=== PATIENT | male | born 1955 | race Caucasian/White ===

== ENCOUNTER 2017-10-30 10:48 | Outpatient (REF) | payer MEDICARE, BC, SELFPAY ==
[2017-10-30 21:28] LABS: Abs Immature Grans 0.01 k/cumm (0.0-0.09); Absolute Basophil Count 0.01 k/cumm (0.0-0.2); Absolute Eosinophil Count 0.08 k/cumm (0.0-0.7); Absolute Lymphocyte Count 0.58 k/cumm (1.2-3.4); Absolute Monocyte Count 0.51 k/cumm (0.11-0.7); Absolute Neutrophil Count 2.77 k/cumm (1.2-6.7); Basophils % 0.3; HCT 39.3 % (40.0-50.0); HGB 12.7 g/dL (13.5-17.5); Immature Grans % 0.3; Mean Corp. HGB Concentration 32.3 g/dL (32.0-36.0); Mean Corpuscular Hemoglobin 34.6 pg (27.0-33.0); Mean Corpuscular Volume 107.1 fL (80-95); Mean Platelet Volume 10.7 fL (8.0-11.0); Monocytes % 12.9; Neutrophils % 69.9; Platelet Count 127 x1000/uL (130-400); RBC 3.67 m/cumm (4.50-6.00); RBC Distribution Width 13.6 % (11.8-14.1); White Blood Cell Count 3.96 k/cumm (4.4-10.8)
[2017-10-30 21:53] LABS: Anion Gap 6.4 mmol/L (3-11); BUN 15 mg/dL (7-18); CO2 32.6 mmol/L (21.0-32.0); CREATININE 0.92 mg/dL (0.70-1.30); Chloride 107 mmol/L (98-107); Glucose 77 mg/dL (70-100); Sodium 146 mmol/L (136-145); TSH 77.77 uIU/mL (0.358-3.74)
[2017-10-30 22:54] LABS: Diff Comment RBC Morph Reviewed
[2017-10-30 22:55] LABS: Macrocytosis 3+
[2017-10-31 18:58] LABS: Diff Comment Manual Differential; Macrocytosis 3+
[2017-10-31 19:03] LABS: Lymphocytes % 14.6
[2017-10-31 19:15] LABS: Absolute Neutrophil Count 2.65 k/cumm (1.2-6.7)
[2017-10-31 19:16] LABS: Absolute Lymphocyte Count 0.79 k/cumm (1.2-3.4)
[2017-10-31 19:17] LABS: Absolute Eosinophil Count 0.08 k/cumm (0.0-0.7)
[2017-10-31 19:18] LABS: Absolute Basophil Count 0.04 k/cumm (0.0-0.2)
[2017-11-01 10:40] LABS: Uric Acid 3.7 mg/dL (3.5-7.2)
[2017-11-02 09:39] LABS: Folate 14.7 ng/ml; Vitamin B12 505 pg/ml (211-911)
== END 2017-10-30 11:08 ==
LOC: NCHCN 10:48
PROVIDERS: PCP Family Medicine; Visit Provider Family Medicine
DX: E03.9 Hypothyroidism, unspecified (principal); D69.6 Thrombocytopenia, unspecified; D72.819 Decreased white blood cell count, unspecified; D53.9 Nutritional anemia, unspecified; D61.818 Other pancytopenia
CPT/HCPCS: 80048; 82607; 82746; 84443; 84550; 85007; 85025

== ENCOUNTER 2018-04-01 15:25 | Outpatient (REF) | payer MEDICARE, BC, SELFPAY ==
[2018-04-01 22:07] LABS: TSH (W/Ref FT4) 184.82 uIU/mL (0.358-3.74)
[2018-04-01 22:22] LABS: FREE T4 0.31 ng/dL (0.76-1.46)
== END 2018-04-01 15:45 ==
LOC: NCHCN 15:25
PROVIDERS: PCP Family Medicine; Visit Provider Family Medicine
DX: E03.9 Hypothyroidism, unspecified (principal)
CPT/HCPCS: 84439; 84443

== ENCOUNTER 2018-04-30 14:47 | Outpatient (REF) | payer MEDICARE, BC, SELFPAY ==
[2018-04-30 22:14] LABS: Absolute Basophil Count 0.01 k/cumm (0.0-0.2); Absolute Eosinophil Count 0.08 k/cumm (0.0-0.7); Absolute Lymphocyte Count 0.56 k/cumm (1.2-3.4); Absolute Monocyte Count 0.54 k/cumm (0.11-0.7); Absolute Neutrophil Count 2.93 k/cumm (1.2-6.7); Basophils % 0.2; Eosinophils % 1.9; HCT 36.4 % (40.0-50.0); HGB 11.9 g/dL (13.5-17.5); Lymphocytes % 13.6; Mean Corp. HGB Concentration 32.7 g/dL (32.0-36.0); Mean Corpuscular Hemoglobin 34.8 pg (27.0-33.0); Mean Corpuscular Volume 106.4 fL (80-95); Mean Platelet Volume 10.2 fL (8.0-11.0); Monocytes % 13.1; Neutrophils % 71.2; Platelet Count 120 x1000/uL (130-400); RBC 3.42 m/cumm (4.50-6.00); RBC Distribution Width 13.4 % (11.8-14.1); Reticulocyte 0.7 % (0.5-2.4); White Blood Cell Count 4.12 k/cumm (4.4-10.8)
[2018-04-30 22:32] LABS: ALT 87 U/L (12-78); AST 56 U/L (15-37); Alkaline Phosphatase 61 U/L (46-116); Anion Gap 4.6 mmol/L (3-11); BUN 19 mg/dL (7-18); CO2 34.4 mmol/L (21.0-32.0); CREATININE 1.24 mg/dL (0.70-1.30); Calcium 9.5 mg/dL (8.5-10.1); Chloride 105 mmol/L (98-107); Estimated GFR 58.51 (mL/min/1.73m2); Glucose 110 mg/dL (70-100); Potassium 3.6 mmol/L (3.5-5.1); Sodium 144 mmol/L (136-145); TSH (W/Ref FT4) 161.66 uIU/mL (0.358-3.74); Total Protein 7.2 g/dL (6.4-8.2)
[2018-04-30 22:51] LABS: FREE T4 0.33 ng/dL (0.76-1.46)
[2018-04-30 22:58] LABS: Diff Comment RBC Morph Reviewed; Macrocytosis 3+
[2018-04-30 22:59] LABS: Hypochromasia 2+
[2018-04-30 23:04] LABS: INR 1.1 (0.9-1.1); Prothrombin Time 10.9 sec (9.3-11.0)
== END 2018-04-30 15:07 ==
LOC: NCHCN 14:47
PROVIDERS: PCP Family Medicine; Visit Provider Family Medicine
DX: E03.9 Hypothyroidism, unspecified (principal); D61.818 Other pancytopenia; D69.6 Thrombocytopenia, unspecified
CPT/HCPCS: 80053; 84439; 84443; 85025; 85045; 85610

== ENCOUNTER 2018-08-13 16:30 | Outpatient (REF) | payer MEDICARE, BC, SELFPAY ==
[2018-08-13 23:57] LABS: TSH 154.48 uIU/mL (0.358-3.74)
[2018-08-14 16:21] LABS: T3,Free 1.2 pg/ml (2.8-5.3)
[2018-08-16 13:52] LABS: IgA 185 mg/dL (85-499); Interpretation SEE COMMENTS; Tissue Transglutaminase IgA <1.2 U/mL (<4.0)
== END 2018-08-13 16:50 ==
LOC: LBN 16:30
PROVIDERS: PCP Family Medicine; Visit Provider Internal Medicine Endocrinology, Diabetes & Metabolism
DX: E03.9 Hypothyroidism, unspecified (principal)
CPT/HCPCS: 82784; 83516; 84439; 84443; 84481

== ENCOUNTER 2018-10-30 00:07 | Outpatient (REF) | payer MEDICARE, BC, SELFPAY ==
[2018-10-30 22:01] LABS: Abs Immature Grans 0.01 k/cumm (0.0-0.09); Absolute Basophil Count 0.01 k/cumm (0.0-0.2); Absolute Eosinophil Count 0.07 k/cumm (0.0-0.7); Absolute Lymphocyte Count 0.53 k/cumm (1.2-3.4); Absolute Monocyte Count 0.31 k/cumm (0.11-0.7); Absolute Neutrophil Count 2.56 k/cumm (1.2-6.7); Basophils % 0.3; HCT 38.8 % (40.0-50.0); HGB 12.6 g/dL (13.5-17.5); Immature Grans % 0.3; Lymphocytes % 15.2; Mean Corp. HGB Concentration 32.5 g/dL (32.0-36.0); Mean Corpuscular Hemoglobin 34.3 pg (27.0-33.0); Mean Corpuscular Volume 105.7 fL (80-95); Mean Platelet Volume 10.3 fL (8.0-11.0); Monocytes % 8.9; Neutrophils % 73.3; Platelet Count 135 x1000/uL (130-400); RBC 3.67 m/cumm (4.50-6.00); RBC Distribution Width 12.9 % (11.8-14.1); White Blood Cell Count 3.49 k/cumm (4.4-10.8)
[2018-10-30 22:12] LABS: ALT 24 U/L (16-63); AST 20 U/L (15-37); Alkaline Phosphatase 61 U/L (46-116); BUN 15 mg/dL (7-18); Bilirubin, Total 0.9 mg/dL (0.2-1.0); CREATININE 0.84 mg/dL (0.70-1.30); Calcium 9.5 mg/dL (8.5-10.1); Chloride 106 mmol/L (98-107); Glucose 113 mg/dL (70-100); Sodium 146 mmol/L (136-145); TSH (W/Ref FT4) 0.26 uIU/mL (0.36-3.74); Total Protein 7.1 g/dL (6.4-8.2)
[2018-10-30 22:47] LABS: FREE T4 1.27 ng/dL (0.76-1.46)
[2018-10-30 23:06] LABS: Diff Comment RBC Morph Reviewed; Macrocytosis 3+
== END 2018-10-30 00:27 ==
LOC: NCHCN 00:07
PROVIDERS: PCP Family Medicine; Visit Provider Family Medicine
DX: E03.9 Hypothyroidism, unspecified (principal); D69.6 Thrombocytopenia, unspecified; D61.818 Other pancytopenia; R74.0 Nonspecific elevation of levels of transaminase and lactic acid dehydrogenase [LDH]
CPT/HCPCS: 80053; 84439; 84443; 85025

== ENCOUNTER 2019-01-30 16:31 | Outpatient (REF) | payer MEDICARE, BC, SELFPAY ==
[2019-01-30 21:15] LABS: HCT 40.2 % (40.0-50.0); HGB 13.2 g/dL (13.5-17.5); Mean Corp. HGB Concentration 32.8 g/dL (32.0-36.0); Mean Corpuscular Hemoglobin 33.2 pg (27.0-33.0); Mean Corpuscular Volume 101.3 fL (80-95); Mean Platelet Volume 10.3 fL (8.0-11.0); Platelet Count 117 x1000/uL (130-400); RBC 3.97 m/cumm (4.50-6.00); RBC Distribution Width 13.6 % (11.8-14.1); White Blood Cell Count 3.84 k/cumm (4.4-10.8)
[2019-01-30 21:28] LABS: ALT 23 U/L (16-63); AST 20 U/L (15-37); Albumin 3.9 g/dL (3.4-5.0); Alkaline Phosphatase 66 U/L (46-116); Anion Gap 7.5 mmol/L (3-11); BUN 18 mg/dL (7-18); Bilirubin, Total 1.2 mg/dL (0.2-1.0); CO2 30.5 mmol/L (21.0-32.0); CREATININE 0.98 mg/dL (0.70-1.30); Calcium 9.2 mg/dL (8.5-10.1); Chloride 105 mmol/L (98-107); Glucose 92 mg/dL (74-106); Potassium 4.4 mmol/L (3.5-5.1); Sodium 143 mmol/L (136-145); TSH (W/Ref FT4) 40.68 uIU/mL (0.36-3.74)
== END 2019-01-30 16:51 ==
LOC: NCHCN 16:31
PROVIDERS: PCP Family Medicine; Visit Provider Family Medicine
DX: E03.9 Hypothyroidism, unspecified (principal); D69.6 Thrombocytopenia, unspecified; D61.818 Other pancytopenia; M81.0 Age-related osteoporosis without current pathological fracture
CPT/HCPCS: 80053; 85027; 84439; 84443

== ENCOUNTER 2019-12-01 11:53 | Outpatient (REF) | payer MEDICARE, BC, SELFPAY ==
[2019-12-01 21:16] LABS: Abs Immature Grans 0.02 10^3/uL (0.0-0.06); Absolute Basophil Count 0.02 10^3/uL (0.0-0.2); Absolute Eosinophil Count 0.12 10^3/uL (0.0-0.7); Absolute Lymphocyte Count 0.61 10^3/uL (1.2-3.4); Absolute Monocyte Count 0.53 10^3/uL (0.1-0.8); Basophils % 0.4; Eosinophils % 2.4; HCT 36.4 % (40.0-50.0); HGB 11.9 g/dL (13.5-17.5); Immature Grans % 0.4; MCH 34.7 pg (27.0-33.0); MCHC 32.7 % (32.0-36.0); MCV 106.1 fL (80-95); MPV 10.5 fL (8.0-11.0); Monocytes % 10.4; Neutrophils % 74.4; Nucleated RBC 0 %; Platelet Count 133 10^3/uL (130-400); RBC 3.43 10^6/uL (4.36-5.78); RDW 13.2 % (11.8-14.1); RDW-SD 51.9 fL
[2019-12-01 21:44] LABS: Macrocytosis 3+
[2019-12-01 21:55] LABS: TSH 0.02 uIU/mL (0.36-3.74); Vitamin B12 591 pg/mL (193-986)
[2019-12-01 22:19] LABS: Folate > 20.0 ng/mL (8.6-20.0)
== END 2019-12-01 12:13 ==
LOC: NCHCN 11:53
PROVIDERS: PCP Family Medicine; Visit Provider Family Medicine
DX: D53.9 Nutritional anemia, unspecified (principal); E03.9 Hypothyroidism, unspecified; D61.818 Other pancytopenia
CPT/HCPCS: 82607; 82746; 84443; 85025

== ENCOUNTER 2020-04-28 10:44 | Outpatient (REF) | payer MEDICARE, BC, SELFPAY ==
[2020-04-28 13:19] LABS: HCT 37.3 % (40.0-50.0); HGB 12.3 g/dL (13.5-17.5); MCH 34.9 pg (27.0-33.0); MPV 10.8 fL (8.0-11.0); Platelet Count 115 10^3/uL (130-400); RBC 3.52 10^6/uL (4.36-5.78); RDW 12.1 % (11.8-14.1); RDW-SD 47.7 fL; WBC 3.41 10^3/uL (4.4-10.8)
[2020-04-28 13:40] LABS: TSH (W/Ref FT4) 0.11 uIU/mL (0.36-3.74)
[2020-04-28 13:56] LABS: FREE T4 1.18 ng/dL (0.76-1.46)
== END 2020-04-28 10:45 | disposition home or self-care (01) ==
LOC: NCHCN 10:44
PROVIDERS: PCP Family Medicine; Visit Provider Family Medicine
DX: E03.8 Other specified hypothyroidism (principal); E06.3 Autoimmune thyroiditis; D61.818 Other pancytopenia
CPT/HCPCS: 85027; 84439; 84443

== ENCOUNTER 2020-07-13 16:22 | Outpatient (REF) | payer MEDICARE, BC, SELFPAY ==
[2020-07-13 15:08] LABS: HCT 37.5 % (40.0-50.0); HGB 12.5 g/dL (13.5-17.5); MCH 35.1 pg (27.0-33.0); MCHC 33.3 % (32.0-36.0); MCV 105.3 fL (80-95); MPV 10.5 fL (8.0-11.0); Platelet Count 123 10^3/uL (130-400); RBC 3.56 10^6/uL (4.36-5.78); RDW 13.4 % (11.8-14.1); RDW-SD 52.5 fL
[2020-07-13 15:26] LABS: ALT 29 U/L (16-63); AST 27 U/L (15-37); Albumin 4.2 g/dL (3.4-5.0); Alkaline Phosphatase 56 U/L (46-116); Anion Gap 9.9 mmol/L (3-11); BUN 19 mg/dL (7-18); Bilirubin, Total 0.8 mg/dL (0.2-1.0); CO2 29.1 mmol/L (21.0-32.0); Calcium 10.1 mg/dL (8.5-10.1); Chloride 107 mmol/L (98-107); Glucose 92 mg/dL (74-106); Potassium 4.9 mmol/L (3.5-5.1); Sodium 146 mmol/L (136-145); TSH 0.51 uIU/mL (0.36-3.74); Total Protein 7.3 g/dL (6.4-8.2)
[2020-07-13 22:43] LABS: PSA, Screening 0.6 ng/mL (0.0-4.5)
== END 2020-07-13 16:23 | disposition home or self-care (01) ==
LOC: LBN 16:22
PROVIDERS: Urology; PCP Family Medicine; Visit Provider Family Medicine
DX: E03.9 Hypothyroidism, unspecified (principal); D61.818 Other pancytopenia; R74.01 Elevation of levels of liver transaminase levels; Z12.5 Encounter for screening for malignant neoplasm of prostate
CPT/HCPCS: 80053; 84153; 85027; 84443

== ENCOUNTER 2020-10-08 15:10 | Outpatient (REF) | payer MEDICARE, BC, SELFPAY ==
[2020-10-08 21:06] LABS: Abs Immature Grans 0.01 10^3/uL (0.0-0.06); Absolute Basophil Count 0.02 10^3/uL (0.0-0.2); Absolute Eosinophil Count 0.08 10^3/uL (0.0-0.7); Absolute Lymphocyte Count 0.38 10^3/uL (1.2-3.4); Absolute Monocyte Count 0.45 10^3/uL (0.1-0.8); Absolute Neutrophil Count 3.46 10^3/uL (1.2-6.7); Basophils % 0.5; Eosinophils % 1.8; HCT 33.3 % (40.0-50.0); HGB 11.1 g/dL (13.5-17.5); Immature Grans % 0.2; Lymphocytes % 8.6; MCH 35.9 pg (27.0-33.0); MCHC 33.3 % (32.0-36.0); MCV 107.8 fL (80-95); MPV 10.5 fL (8.0-11.0); Monocytes % 10.2; Neutrophils % 78.7; Nucleated RBC 0 %; Platelet Count 124 10^3/uL (130-400); RBC 3.09 10^6/uL (4.36-5.78); RDW 13.7 % (11.8-14.1); RDW-SD 54.8 fL
[2020-10-08 21:39] LABS: ALT 63 U/L (16-63); AST 30 U/L (15-37); Albumin 3.7 g/dL (3.4-5.0); Alkaline Phosphatase 53 U/L (46-116); Anion Gap 6.7 mmol/L (3-11); BUN 17 mg/dL (7-18); Bilirubin, Total 0.5 mg/dL (0.2-1.0); CO2 31.3 mmol/L (21.0-32.0); CREATININE 0.8 mg/dL (0.70-1.30); Calcium 8.9 mg/dL (8.5-10.1); Chloride 108 mmol/L (98-107); Glucose 88 mg/dL (74-106); Potassium 4.5 mmol/L (3.5-5.1); Sodium 146 mmol/L (136-145); TSH (W/Ref FT4) 5.35 uIU/mL (0.36-3.74); Total Protein 6.6 g/dL (6.4-8.2)
[2020-10-08 22:04] LABS: FREE T4 0.68 ng/dL (0.76-1.46)
== END 2020-10-08 15:11 | disposition home or self-care (01) ==
LOC: NCHCN 15:10
PROVIDERS: PCP Family Medicine; Visit Provider Nurse Practitioner Family
DX: R63.4 Abnormal weight loss (principal); R19.7 Diarrhea, unspecified
CPT/HCPCS: 80053; 84439; 84443; 85025

== ENCOUNTER 2020-10-11 16:21 | Outpatient (REF) | payer MEDICARE, BC, SELFPAY ==
[2020-10-11 23:49] LABS: C Diff PCR Negative (Negative)
[2020-10-12 21:11] LABS: Campylobacter PCR Negative (Negative); Salmonella PCR Negative (Negative); Shiga Toxin PCR Negative (Negative); Shigella/Enteroinvasive Ecoli Negative (Negative)
[2020-10-14 13:29] LABS: Helicobacter pylori Ag, Feces Negative (Negative)
== END 2020-10-11 16:22 | disposition home or self-care (01) ==
LOC: NCHCN 16:21
PROVIDERS: PCP Family Medicine; Visit Provider Family Medicine
DX: R19.7 Diarrhea, unspecified (principal); R63.4 Abnormal weight loss
CPT/HCPCS: 87329; 87338; 87493; 87505; 83630; 87177; 87230

== ENCOUNTER 2020-12-03 11:12 | Outpatient (REF) | payer MEDICARE, BC, SELFPAY ==
[2020-12-03 14:39] LABS: TSH (W/Ref FT4) 0.04 uIU/mL (0.36-3.74)
[2020-12-03 14:55] LABS: FREE T4 0.93 ng/dL (0.76-1.46)
== END 2020-12-03 11:13 | disposition home or self-care (01) ==
LOC: NCHCN 11:12
PROVIDERS: PCP Family Medicine; Visit Provider Family Medicine
DX: E03.9 Hypothyroidism, unspecified (principal)
CPT/HCPCS: 84439; 84443

== ENCOUNTER 2021-03-31 15:53 | Outpatient (REF) | payer MEDICARE, BC, SELFPAY ==
[2021-03-31 17:53] LABS: Absolute Basophil Count 0.02 10^3/uL (0.0-0.2); Absolute Eosinophil Count 0.14 10^3/uL (0.0-0.7); Absolute Lymphocyte Count 0.41 10^3/uL (1.2-3.4); Absolute Monocyte Count 0.56 10^3/uL (0.1-0.8); Absolute Neutrophil Count 3.06 10^3/uL (1.2-6.7); Basophils % 0.5; Eosinophils % 3.3; HCT 35.2 % (40.0-50.0); HGB 11.4 g/dL (13.5-17.5); Immature Grans % 0.7; Lymphocytes % 9.7; MCH 35.5 pg (27.0-33.0); MCHC 32.4 % (32.0-36.0); MCV 109.7 fL (80-95); MPV 10.3 fL (8.0-11.0); Monocytes % 13.3; Neutrophils % 72.5; Nucleated RBC 0 %; Platelet Count 139 10^3/uL (130-400); RBC 3.21 10^6/uL (4.36-5.78); RDW 13.2 % (11.8-14.1); RDW-SD 53.6 fL; WBC 4.22 10^3/uL (4.4-10.8)
[2021-03-31 18:07] LABS: Anisocytosis 1+; Diff Comment Agrees w/ Instrument; Macrocytosis 1+
== END 2021-03-31 15:54 | disposition home or self-care (01) ==
LOC: LBN 15:53
PROVIDERS: PCP Family Medicine; Visit Provider Internal Medicine Hematology & Oncology
DX: D64.9 Anemia, unspecified (principal); D61.818 Other pancytopenia
CPT/HCPCS: 85025

== ENCOUNTER 2021-04-21 12:31 | Outpatient (REF) | payer MEDICARE, BC, SELFPAY ==
[2021-04-21 21:13] LABS: Hemoglobin A1C 5.8 % (<5.7)
[2021-04-21 21:22] LABS: Calculated LDL 151 mg/dL (<100); Cholesterol 224 mg/dL (<200); HDL Cholesterol 53 mg/dL (40-60); TSH 16.93 uIU/mL (0.36-3.74); Triglyceride 103 mg/dL (<150)
== END 2021-04-21 12:32 | disposition home or self-care (01) ==
LOC: NCHCN 12:31
PROVIDERS: PCP Family Medicine; Visit Provider Family Medicine
DX: E03.9 Hypothyroidism, unspecified (principal); Z00.00 Encounter for general adult medical examination without abnormal findings
CPT/HCPCS: 80061; 83036; 84443

== ENCOUNTER 2021-06-16 23:05 | Outpatient (REF) | payer MEDICARE, BC, SELFPAY ==
[2021-06-16 14:33] LABS: Abs Immature Grans 0.02 10^3/uL (0.0-0.06); Absolute Basophil Count 0.02 10^3/uL (0.0-0.2); Absolute Monocyte Count 0.53 10^3/uL (0.1-0.8); Absolute Neutrophil Count 3.24 10^3/uL (1.2-6.7); Basophils % 0.5; Eosinophils % 2.3; HCT 36.1 % (40.0-50.0); HGB 11.5 g/dL (13.5-17.5); Immature Grans % 0.5; Lymphocytes % 11.3; MCH 34.2 pg (27.0-33.0); MCHC 31.9 % (32.0-36.0); MCV 107 fL (80-95); MPV 10.3 fL (8.0-11.0); Neutrophils % 73.4; Platelet Count 122 10^3/uL (130-400); RBC 3.36 10^6/uL (4.36-5.78); RDW 13.1 % (11.8-14.1); WBC 4.41 10^3/uL (4.4-10.8)
[2021-06-16 14:43] LABS: ALT 46 U/L (16-63); AST 34 U/L (15-37); Alkaline Phosphatase 59 U/L (46-116); Anion Gap 6.8 mmol/L (3-11); BUN 19 mg/dL (7-18); Bilirubin, Total 0.7 mg/dL (0.2-1.0); CO2 30.2 mmol/L (21.0-32.0); CREATININE 0.9 mg/dL (0.70-1.30); Calcium 9.1 mg/dL (8.5-10.1); Chloride 107 mmol/L (98-107); Glucose 106 mg/dL (74-106); Sodium 144 mmol/L (136-145)
[2021-06-16 14:49] LABS: Hemoglobin A1C 5.9 % (<5.7)
[2021-06-16 14:51] LABS: Calculated LDL 122 mg/dL (<100); Cholesterol 195 mg/dL (<200); HDL Cholesterol 55 mg/dL (40-60); TSH 41.14 uIU/mL (0.36-3.74); Triglyceride 92 mg/dL (<150)
== END 2021-06-16 23:06 | disposition home or self-care (01) ==
LOC: NCHCN 23:05
PROVIDERS: PCP Family Medicine; Visit Provider Family Medicine
DX: E03.9 Hypothyroidism, unspecified (principal); R73.03 Prediabetes; E78.70 Disorder of bile acid and cholesterol metabolism, unspecified; D61.818 Other pancytopenia
CPT/HCPCS: 80053; 80061; 83036; 84443; 85025

== ENCOUNTER 2021-09-12 09:31 | Outpatient (REF) | payer MEDICARE, BC, SELFPAY ==
[2021-09-12 15:23] LABS: TSH 6.56 uIU/mL (0.36-3.74)
== END 2021-09-12 09:32 | disposition home or self-care (01) ==
LOC: NCHCN 09:31
PROVIDERS: PCP Family Medicine; Visit Provider Family Medicine
DX: E03.9 Hypothyroidism, unspecified (principal)
CPT/HCPCS: 84443

== ENCOUNTER 2022-05-18 09:06 | Outpatient (REF) | payer MEDICARE, BC, SELFPAY ==
[2022-05-18 17:45] LABS: HCT 35.5 % (40.0-50.0); HGB 11.7 g/dL (13.5-17.5); MCH 35.3 pg (27.0-33.0); MCV 107 fL (80-95); MPV 10.8 fL (8.0-11.0); Platelet Count 117 10^3/uL (130-400); RBC 3.31 10^6/uL (4.36-5.78); RDW 12.8 % (11.8-14.1); RDW-SD 50.6 fL; WBC 4.23 10^3/uL (4.4-10.8)
[2022-05-18 17:47] LABS: ALT 35 U/L (16-63); AST 28 U/L (15-37); Alkaline Phosphatase 52 U/L (46-116); Anion Gap 5.7 mmol/L (3-11); BUN 19 mg/dL (7-18); Bilirubin, Total 0.9 mg/dL (0.2-1.0); CO2 33.3 mmol/L (21.0-32.0); CREATININE 1.1 mg/dL (0.70-1.30); Calculated LDL 85 mg/dL (<100); Chloride 107 mmol/L (98-107); Cholesterol 164 mg/dL (<200); Estimated GFR 72.67 (mL/min/1.73m2); Glucose 98 mg/dL (74-106); HDL Cholesterol 62 mg/dL (40-60); Sodium 146 mmol/L (136-145); TSH 70.73 uIU/mL (0.36-3.74); Total Protein 7.4 g/dL (6.4-8.2); Triglyceride 89 mg/dL (<150)
[2022-05-18 18:20] LABS: Hemoglobin A1C 5.9 % (<5.7)
[2022-05-19 20:24] LABS: PSA, Screening 0.5 ng/mL (<=4.5)
== END 2022-05-18 09:07 | disposition home or self-care (01) ==
LOC: NCHCN 09:06
PROVIDERS: PCP Family Medicine; Visit Provider Family Medicine
DX: R73.03 Prediabetes (principal); D53.9 Nutritional anemia, unspecified; E78.70 Disorder of bile acid and cholesterol metabolism, unspecified; E03.9 Hypothyroidism, unspecified; N40.0 Benign prostatic hyperplasia without lower urinary tract symptoms; Z12.5 Encounter for screening for malignant neoplasm of prostate
CPT/HCPCS: 80053; 80061; 84153; 85027; 83036; 84443

== ENCOUNTER 2022-06-09 18:03 | Outpatient (REF) | payer MEDICARE, BC, SELFPAY ==
--- NOTE | 2022-06-09 13:29 | SKI_PTH ---
PATIENT: Placido Noel LOC: [facility] U#:[id number] AGE/SX: 67/M ROOM: RE06/09/[address]: JIN Rashid : 1955 BED: DIS: 06/09/2022 SPEC #: [id number] RECD: 06/09/22 18:16 STATUS: ANTHONY REQ #: [id number] ROSALINDA: 06/09/22 13:[address]: Luis Eduardo Poe DEPT: Surgical Specimen RECD BY: Dede Goodwin ENTERED: 06/09/22 18:17 SP TYPE: JAQUELINE GRESHAM DR: Danyelle Jon Tissues: 1 - SKIN BIOPSY(SHAVE/PUNCH) Procedures: SKIN LEVEL 4 Comments: [id number]
== END 2022-06-09 18:04 | disposition home or self-care (01) ==
LOC: LBN 18:03
PROVIDERS: PCP Family Medicine; Visit Provider Physician Assistant
DX: C44.219 Basal cell carcinoma of skin of left ear and external auricular canal (principal)
CPT/HCPCS: 88305

== ENCOUNTER 2022-07-31 12:46 | Outpatient (REF) | payer MEDICARE, BC, SELFPAY ==
[2022-07-31 15:40] LABS: Abs Immature Grans 0.01 10^3/uL (0.0-0.06); Absolute Basophil Count 0.02 10^3/uL (0.0-0.2); Absolute Eosinophil Count 0.06 10^3/uL (0.0-0.7); Absolute Lymphocyte Count 0.59 10^3/uL (1.2-3.4); Absolute Monocyte Count 0.48 10^3/uL (0.1-0.8); Absolute Neutrophil Count 2.55 10^3/uL (1.2-6.7); Basophils % 0.5; Eosinophils % 1.6; HCT 34.4 % (40.0-50.0); HGB 11.2 g/dL (13.5-17.5); Immature Grans % 0.3; Lymphocytes % 15.9; MCH 35.3 pg (27.0-33.0); MCHC 32.6 % (32.0-36.0); MCV 109 fL (80-95); MPV 11.3 fL (8.0-11.0); Monocytes % 12.9; Neutrophils % 68.8; Platelet Count 108 10^3/uL (130-400); RBC 3.17 10^6/uL (4.36-5.78); RDW 12.7 % (11.8-14.1); RDW-SD 51.3 fL; WBC 3.71 10^3/uL (4.4-10.8)
[2022-07-31 16:00] LABS: TSH 3.97 uIU/mL (0.36-3.74)
[2022-07-31 16:35] LABS: Diff Comment Diff Reviewed; Macrocytosis 1+
== END 2022-07-31 12:47 | disposition home or self-care (01) ==
LOC: NCHCN 12:46
PROVIDERS: PCP Family Medicine; Visit Provider Family Medicine
DX: D53.9 Nutritional anemia, unspecified (principal); E03.9 Hypothyroidism, unspecified
CPT/HCPCS: 84443; 85025

== ENCOUNTER 2022-12-22 13:27 | Emergency (ER) | payer MEDICARE, BC, SELFPAY ==
--- NOTE | 2022-12-22 13:15 | RT.EKG_ITS ---
APPROVED REPORT Exam: Resting ECG Reason for Exam: chest pain Patient Location: E HR:56 bpm ECG Measurements Heart Rate 56 AXIS IA 169 P 129 QRSd 94 QRS 112 QT 410 T 89 QTc 395 Conclusion bradycardia 56 right axis no priors
[2022-12-22 13:28] VITALS: BP 98/53; PULSE 58; RESP 20; TEMP 37.1; O2SAT 94
--- NOTE | 2022-12-22 14:00 | DI.RAD_ITS ---
Exam(s) XR CHEST 2V PA LATERAL EXAM: XR CHEST 2V PA LATERAL CLINICAL HISTORY: Chest pain TECHNIQUE: 2D digital imaging was performed. COMPARISON: No exams were available for comparison FINDINGS: HEART: Normal size. Aorta: Not dilated. PULMONARY VASCULATURE: Normal. LUNGS: Apical scarring. Mildly increased interstitial changes. No infiltrate or effusion. PLEURAL SPACE: No pleural effusion or pneumothorax. BONE:Unremarkable for age. Small hiatal hernia. IMPRESSION: No acute abnormality. DATA REPOSITORY: RADIATION DOSE DELIVERED:
[2022-12-22 14:45] LABS: Abs Immature Grans 0.06 10^3/uL (0.0-0.06); Absolute Basophil Count 0.01 10^3/uL (0.0-0.2); Absolute Eosinophil Count 0.07 10^3/uL (0.0-0.7); Absolute Lymphocyte Count 0.27 10^3/uL (1.2-3.4); Absolute Monocyte Count 0.56 10^3/uL (0.1-0.8); Absolute Neutrophil Count 5.64 10^3/uL (1.2-6.7); Basophils % 0.2; Eosinophils % 1.1; HCT 36.8 % (40.0-50.0); HGB 12.1 g/dL (13.5-17.5); Immature Grans % 0.9; Lymphocytes % 4.1; MCH 35.3 pg (27.0-33.0); MCHC 32.9 % (32.0-36.0); MCV 107 fL (80-95); MPV 9.6 fL (8.0-11.0); Monocytes % 8.5; Neutrophils % 85.2; Platelet Count 110 10^3/uL (130-400); RBC 3.43 10^6/uL (4.36-5.78); RDW 13.2 % (11.8-14.1); RDW-SD 52.1 fL; WBC 6.61 10^3/uL (4.4-10.8)
--- NOTE | 2022-12-22 14:54 | ED.GENADUL_ITS ---
Discharge Plan Discharge Details Chief Complaint: ForeignBody Primary Care Provider: Danyelle Jon ED Provider: Mikel Lai Home Meds and New Rx's Prescriptions: No Action ranitidine HCl 150 mg capsule PO levothyroxine 137 mcg capsule 137 mcg PO DAILY levetiracetam 750 mg tablet 750 mg PO BID oxybutynin chloride 10 mg tablet extended release 24hr 10 mg PO DAILY ascorbate calcium (vitamin C) 500 mg tablet 500 mg PO DAILY Tirosint-Juli 150 mcg/mL solution 37.5 mcg PO DIRECTED Metamucil 3.4 gram/5.4 gram powder 1 tbsp PO DAILY Rx Instructions: mix into at least 8 oz of water or juice before administering Debrox 6.5 % drops 5 drp otic (ear) DAILY tamsulosin 0.4 mg capsule 0.4 mg PO QHS acetaminophen [Tactinal] 325 mg tablet 650 mg PO ONCE PRN calcium citrate 200 mg (950 mg) tablet 200 mg PO DAILY Cerovite Senior 0.4 mg-300 mcg- 250 mcg tablet 1 tab PO DAILY loperamide PO Myrbetriq 50 mg tablet extended release 24 hr 50 mg PO DAILY simvastatin 20 mg tablet Medical Decision Making Patient presenting to the emergency department via EMS for chief complaint of chest pain. While eating steak he also had started having some chest pain and family appeared like he was going to vomit holding his chest and started drooling. By the time EMS arrived the symptoms seem to resolve but family was concerned due to significant family history of cardiac events at young age. Patient does have significant past medical history of developmental delay and epilepsy along with GERD. Physical exam is noncontributory with patient continuing to endorse no symptoms at this time. Given patient's developmental delay and family history of cardiac in the early 50s we will plan on checking labs EKG and chest x-ray including delta troponin since event happened just shortly prior to arrival to the emergency department. While I do believe chief working differential diagnosis is food bolus with painful swallowing I do feel there is some benefit for full cardiac work-up given familial history. Please see physician interpretation for full interpretation of EKG but upon my review patient is in sinus rhythm, bradycardic with a rate of 56 and machine read of right axis deviation but I see no signs of acute ischemia/STEMI that is of emergent concern. Reviewed patient's initial labs and patient does have anemia that actually slightly improved from previous labs and platelet count of 110 which is again at patient's baseline. CMP is overall noncontributory and initial troponin is nondetected. D-dimer is negative. reviewed chest x-ray along with radiologist interpretation that shows no acute findings. Given family history we will repeat delta troponin to ensure that this was not a cardiac event given very basic communication level. Pending delta troponin patient signed out to JIN Rod. Patient is in stable condition with no new complaints or worsening of condition. Imaging Data Radiologic Study: Imaging: CT Scan Radiologist's impression: Exam(s) XR CHEST 2V PA LATERAL EXAM: XR CHEST 2V PA LATERAL CLINICAL HISTORY: Chest pain TECHNIQUE: 2D digital imaging was performed. COMPARISON: No exams were available for comparison FINDINGS: HEART: Normal size. Aorta: Not dilated. PULMONARY VASCULATURE: Normal. LUNGS: Apical scarring. Mildly increased interstitial changes. No infiltrate or effusion. PLEURAL SPACE: No pleural effusion or pneumothorax. BONE:Unremarkable for age. Small hiatal hernia. IMPRESSION: No acute abnormality. Lab Data Lab results reviewed: Yes I reviewed the patient's lab results. HPI General Mode of arrival: EMS . Date/Time Provider Initiated Documentation: 12/22/22 13:52 . Limitations to Documentation: no limitations . Information obtained by: patient, family and RN notes reviewed . History of Present Illness 67 year old M presents to the emergency department with the chief complaint of Chest pain, Quality is described as sharp, and is localized to the chest. Patient reports no radiation. Patient started experiencing this minute(s) (30) and it has been now resolved. No relieving factors improve symptom(s), Eating worsens symptoms . Patient notes no other symptoms.. Patient did receive the following treatments prior to arrival, none Related Data Home Medications Medication Instructions Recorded Confirmed ascorbate calcium (vitamin C) 500 500 mg PO DAILY 10/30/22 12/22/22 mg tablet carbamide peroxide 6.5 % ear drops 5 drp otic (ear) DAILY 10/30/22 12/22/22 (Debrox) levetiracetam 750 mg tablet 750 mg PO BID 10/30/22 12/22/22 levothyroxine 137 mcg capsule 137 mcg PO DAILY 10/30/22 12/22/22 levothyroxine 150 mcg/mL oral 37.5 mcg PO DIRECTED 10/30/22 12/22/22 solution (Tirosint-Juli) oxybutynin chloride 10 mg 10 mg PO DAILY 10/30/22 12/22/22 tablet,extended release 24 hr psyllium husk 3.4 gram/5.4 gram 1 tbsp PO DAILY 10/30/22 12/22/22 oral powder (Metamucil) ranitidine HCl 150 mg capsule mg PO 10/30/22 tamsulosin 0.4 mg capsule 0.4 mg PO QHS 10/30/22 12/22/22 acetaminophen 325 mg tablet 650 mg PO ONCE PRN 12/22/22 12/22/22 (Tactinal) calcium citrate 200 mg (950 mg) 200 mg PO DAILY 12/22/22 12/22/22 tablet loperamide PO 12/22/22 mirabegron 50 mg tablet,extended 50 mg PO DAILY 12/22/22 12/22/22 release 24 hr (Myrbetriq) bcycgqcg-rrt-ultgg acid 0.4 1 tab PO DAILY 12/22/22 12/22/22 mg-lycopene 300 mcg-lutein 250 mcg tablet (Cerovite Senior) simvastatin 20 mg tablet mg 12/22/22 Allergies Allergy/AdvReac Type Severity Reaction Status Date / Time No Known Allergies Allergy Verified 12/22/22 13:33 General Stated Complaint: ForeignBody CLAU: 3 Review of Systems Constitutional Constitutional: Denies chills, Denies fever(s) and Denies malaise ENT Ears, Nose, Mouth, and Throat: Denies odynophagia and Denies throat swelling Cardiovascular Cardiovascular: Reports as per HPI, Reports chest pain, Denies chest pain with activity, Denies syncope, Denies irregular heart rhythm, Denies palpitations and Denies dyspnea Respiratory Respiratory: Denies cough, Denies hemoptysis and Denies dyspnea Gastrointestinal Gastrointestinal: Denies abdominal pain, Denies nausea, Denies odynophagia and Denies vomiting Neurologic Neurologic: Denies syncope Psychiatric Psychiatric: Denies anxiety Endocrine Endocrine: Denies cold intolerance, Denies heat intolerance and Denies palpitations Allergic/Immunologic Allergic/Immunologic: Denies throat swelling PFSH All Active Problems Uses hearing aid (Acute) Abnormal auditory perception (Acute) Impacted cerumen of both ears (Acute) Sensorineural hearing loss, bilateral (Chronic 04/22/15) Medical History History of broken leg Epilepsy BPH (benign prostatic hyperplasia) Incontinence GERD (gastroesophageal reflux disease) Surgical History History of tonsillectomy and adenoidectomy Family History Father No problems noted. Mother No problems noted. Social History Smoking/Tobacco Use Status: Never Smoking risk assessment performed?: Yes Alcohol Intake: never Drug use: Never Substance use type: does not use Housing: assisted living facility Do you feel safe at home: Yes Do you feel safe in your relationship?: Yes Exam Const General: cooperative, healthy appearing, comfortable, no acute distress, not diaphoretic and not ill appearing Orientation: alert and awake Neck Neck: normal visual inspection, full ROM, trachea midline, supple and no anterior neck swelling Carotids: normal carotid upstroke and no bruits Resp Effort & Inspection: normal respiratory effort and able to speak in complete sentences Auscultation: clear to auscultation bilaterally Cardio Jugular venous pressure: no JVD Palpation: normal PMI Rate: regular rate Rhythm: regular rhythm Heart Sounds: S1 normal, S2 normal, no click, no gallops, no murmurs and no rubs Bruits: no abdominal aortic bruits and no carotid bruits Pulses: radial pulses present bilaterally 2+ GI Inspection: normal to inspection Palpation: soft, no aortic enlargement, no pulsatile masses and nontender Auscultation: normal bowel sounds Skin General skin exam: no rashes or lesions noted Neuro General: patient alert, patient awake, tone normal and moves all extremities Course Vital Signs Vital signs: Vital Signs Temperature 37.1 C 12/22/22 13:28 Pulse 58 L 12/22/22 13:28 Respiratory Rate 20 12/22/22 13:28 Blood Pressure 98/53 L 12/22/22 13:28 Pulse Oximetry 94 12/22/22 13:28 Temperature 37.1 C 12/22/22 13:28 Temperature Source Skin 12/22/22 13:28 Pulse 58 L 12/22/22 13:28 Respiratory Rate 20 12/22/22 13:28 Respiratory Effort Normal 12/22/22 13:38 Respiratory Pattern Normal 12/22/22 13:38 Blood Pressure 98/53 L 12/22/22 13:28 Blood Pressure Position Supine 12/22/22 13:28 Pulse Oximetry 94 12/22/22 13:28 Oxygen Delivery Method Room Air 12/22/22 13:28 Oxygen Flow Rate 0 12/22/22 13:28 Lab/Test Results Lab/Test Results: Laboratory Tests Range/Units 12/22/22 14:40 WBC (4.4-10.8) 10^3/uL 6.61 RBC (4.36-5.78) 10^6/uL 3.43 L Hgb (13.5-17.5) g/dL 12.1 L Hct (40.0-50.0) % 36.8 L MCV (80-95) fL 107 H MCH (27.0-33.0) pg 35.3 H MCHC (32.0-36.0) % 32.9 RDW (11.8-14.1) % 13.2 Plt Count (130-400) 10^3/uL 110 L MPV (8.0-11.0) fL 9.6 Immature Gran % 0.9 Neutrophils % 85.2 Lymphocytes % 4.1 Monocytes % 8.5 Eosinophils % 1.1 Basophils % 0.2 Nucleated RBC % (0.0-0.3) % 0.0 Absolute Neutrophils (1.2-6.7) 10^3/uL 5.64 Absolute Lymphocytes (1.2-3.4) 10^3/uL 0.27 L Absolute Monocytes (0.1-0.8) 10^3/uL 0.56 Absolute Eosinophils (0.0-0.7) 10^3/uL 0.07 Absolute Basophils (0.0-0.2) 10^3/uL 0.01 Sign Out Sign Out Data: Sign Out Comment: Patient signed out to JIN Rod pending delta troponin and disposition. I suspect patient will have disposition home for diagnosis of food bolus causing epigastric pain. Last updated by Mikel Lai NP at 12/22/22 15:56
[2022-12-22 15:02] LABS: ALT 28 U/L (16-63); AST 20 U/L (15-37); Alkaline Phosphatase 54 U/L (46-116); Anion Gap 6.4 mmol/L (3-11); BUN 20 mg/dL (7-18); Bilirubin, Total 0.7 mg/dL (0.2-1.0); CO2 31.6 mmol/L (21.0-32.0); Chloride 105 mmol/L (98-107); Estimated GFR 81.47 (mL/min/1.73m2); Glucose 108 mg/dL (74-106); INR 1.1 (0.9-1.1); Magnesium 2.2 mg/dL (1.8-2.4); PTT Activated 24.5 sec (23.6-32.8); Potassium 4.2 mmol/L (3.5-5.1); Prothrombin Time 11.2 sec (9.1-11.1); Sodium 143 mmol/L (136-145); Total Protein 7.8 g/dL (6.4-8.2); Troponin I < 50 ng/L (<or=60)
[2022-12-22 15:17] LABS: D-Dimer 432 ng/mlFEU (<500)
[2022-12-22 17:20] LABS: Troponin I < 50 ng/L (<or=60)
[2022-12-22 17:38] VITALS: BP 142/65; PULSE 68; TEMP 36.6; O2SAT 98
== END 2022-12-22 17:59 | disposition home or self-care (01) ==
PROVIDERS: Nurse Practitioner Family; Emergency Provider Physician Assistant; PCP Family Medicine
DX: R07.89 Other chest pain (principal); R13.10 Dysphagia, unspecified; T18.120A Food in esophagus causing compression of trachea, initial encounter
CPT/HCPCS: 80053; 93005; 99283; 71046; 83735; 84484; 85025; 85379; 85610; 85730; 93010

== ENCOUNTER 2023-01-19 21:38 | Outpatient (REF) | payer MEDICARE, BC, SELFPAY ==
[2023-01-19 21:19] LABS: Abs Immature Grans 0.01 10^3/uL (0.0-0.06); Absolute Basophil Count 0.02 10^3/uL (0.0-0.2); Absolute Eosinophil Count 0.09 10^3/uL (0.0-0.7); Absolute Lymphocyte Count 0.47 10^3/uL (1.2-3.4); Absolute Monocyte Count 0.55 10^3/uL (0.1-0.8); Absolute Neutrophil Count 2.49 10^3/uL (1.2-6.7); Basophils % 0.6; Eosinophils % 2.5; HCT 34.9 % (40.0-50.0); HGB 11.4 g/dL (13.5-17.5); Immature Grans % 0.3; Lymphocytes % 12.9; MCH 35.2 pg (27.0-33.0); MCHC 32.7 % (32.0-36.0); MCV 108 fL (80-95); MPV 10.5 fL (8.0-11.0); Monocytes % 15.2; Neutrophils % 68.5; Platelet Count 128 10^3/uL (130-400); RBC 3.24 10^6/uL (4.36-5.78); RDW 12.8 % (11.8-14.1); RDW-SD 51.5 fL; WBC 3.63 10^3/uL (4.4-10.8)
[2023-01-19 21:57] LABS: Macrocytosis 1+
[2023-01-19 22:01] LABS: TSH 9.44 uIU/mL (0.36-3.74)
== END 2023-01-19 21:39 | disposition home or self-care (01) ==
LOC: NCHCN 21:38
PROVIDERS: PCP Family Medicine; Visit Provider Family Medicine
DX: E03.9 Hypothyroidism, unspecified (principal); D61.818 Other pancytopenia
CPT/HCPCS: 84443; 85025

== ENCOUNTER 2023-03-08 11:16 | Outpatient (REF) | payer MEDICARE, BC, SELFPAY ==
[2023-03-08 14:19] LABS: HCT 36.5 % (40.0-50.0); HGB 11.9 g/dL (13.5-17.5); MCH 34.7 pg (27.0-33.0); MCHC 32.6 % (32.0-36.0); MCV 106 fL (80-95); MPV 10.3 fL (8.0-11.0); Platelet Count 140 10^3/uL (130-400); RBC 3.43 10^6/uL (4.36-5.78); RDW 12.4 % (11.8-14.1); RDW-SD 48.8 fL; WBC 4.55 10^3/uL (4.4-10.8)
[2023-03-08 14:37] LABS: Hemoglobin A1C 5.5 % (<5.7)
[2023-03-08 14:44] LABS: Calculated LDL 92 mg/dL (<100); Cholesterol 164 mg/dL (<200); HDL Cholesterol 56 mg/dL (40-60); TSH 0.74 uIU/mL (0.36-3.74); Triglyceride 82 mg/dL (<150)
[2023-03-08 23:26] LABS: PSA, Screening 0.6 ng/mL (<=4.5)
== END 2023-03-08 11:17 | disposition home or self-care (01) ==
LOC: NCHCN 11:16
PROVIDERS: PCP Family Medicine; Visit Provider Family Medicine
DX: E78.70 Disorder of bile acid and cholesterol metabolism, unspecified (principal); E03.9 Hypothyroidism, unspecified; D61.818 Other pancytopenia; R73.03 Prediabetes; Z12.5 Encounter for screening for malignant neoplasm of prostate
CPT/HCPCS: 80061; 84153; 85027; 83036; 84443

== ENCOUNTER 2024-01-21 15:45 | Outpatient (REF) | payer MEDICARE, BC, SELFPAY ==
[2024-01-21 16:29] LABS: ALT 19 U/L (16-63); AST 17 U/L (15-37); Albumin 3.5 g/dL (3.4-5.0); Alkaline Phosphatase 94 U/L (46-116); Anion Gap 5.2 mmol/L (3-11); BUN 19 mg/dL (7-18); Bilirubin, Total 0.67 mg/dL (0.2-1.0); CO2 33.8 mmol/L (21.0-32.0); CREATININE 0.9 mg/dL (0.70-1.30); Calcium 10.2 mg/dL (8.5-10.1); Calculated LDL 81 mg/dL (<100); Chloride 108 mmol/L (98-107); Cholesterol 155 mg/dL (<200); Estimated GFR 91.88 (mL/min/1.73m2); Glucose 117 mg/dL (74-106); HDL Cholesterol 59 mg/dL (40-60); Potassium 4.4 mmol/L (3.5-5.1); Sodium 147 mmol/L (136-145); TSH (W/Ref FT4) 0.04 uIU/mL (0.36-3.74); Total Protein 8.1 g/dL (6.4-8.2); Triglyceride 76 mg/dL (<150)
[2024-01-21 17:20] LABS: FREE T4 1.11 ng/dL (0.76-1.46)
[2024-01-21 22:37] LABS: PSA, Screening 1.3 ng/mL (<=6.5)
== END 2024-01-21 15:46 | disposition home or self-care (01) ==
LOC: NCHCN 15:45
PROVIDERS: PCP Family Medicine; Visit Provider Family Medicine
DX: E78.5 Hyperlipidemia, unspecified (principal); R73.03 Prediabetes; N40.1 Benign prostatic hyperplasia with lower urinary tract symptoms
CPT/HCPCS: 80053; 80061; 84153; 83036; 84439; 84443

== ENCOUNTER 2024-04-03 10:47 | Outpatient (REF) | payer MEDICARE, BC, SELFPAY ==
[2024-04-03 22:17] LABS: Anion Gap 4.8 mmol/L (3-11); BUN 12 mg/dL (7-18); CO2 33.2 mmol/L (21.0-32.0); CREATININE 0.9 mg/dL (0.70-1.30); Calcium 10.1 mg/dL (8.5-10.1); Chloride 108 mmol/L (98-107); Estimated GFR 91.88 (mL/min/1.73m2); FREE T4 1.22 ng/dL (0.76-1.46); Glucose 84 mg/dL (74-106); Potassium 3.8 mmol/L (3.5-5.1); Sodium 146 mmol/L (136-145); TSH 0.97 uIU/mL (0.36-3.74)
== END 2024-04-03 10:48 | disposition home or self-care (01) ==
LOC: NCHCN 10:47
PROVIDERS: PCP Family Medicine; Visit Provider Family Medicine
DX: E03.9 Hypothyroidism, unspecified (principal)
CPT/HCPCS: 80048; 84439; 84443